=== PATIENT | female | born 1930 | race Caucasian/White ===

== ENCOUNTER 2018-02-22 10:38 | Day surgery (SDC) | payer MEDICARE ==
[~2018-02-22] VITALS: Ht 157.5 cm; Wt 91.2 kg
[~2018-02-22 10:38] MED LIST: ARTHRITIS PAIN650 MG PO; BENADRYL25 M1 PO; CIALIS20 MG PO; DILTIAZEM240 MG PO; FLUARIX QUADRIV1 IN2 IM; FLUARIX QUADRIV1 INJ IM; GLIPIZIDE10 M1 PO; GLUCOTROL10 MG PO; HUMULIN 70/30 SC; LASIX 40 MG TAB40 MG PO; LEVOTHROID200 MCG PO; LEVOTHYROXIN175 MC1 PO; LEVOTHYROXIN200 MC2 PO; LEVOTHYROXIN25 MC1 PO; LOPID600 MG PO; LOTRISONE EX; METOPROLOL TART50 MG PO; NEBULIZE4; NOVOLIN 70/30 RELION SC; NOVOLIN 70/30 SC; ONE TOUCH ULTRA 50 XX; OXY1; PERCOCET 5/325M1 TAB PO; PERCOCET1 TA2 PO; PLAVIX75 MG PO; SM ASPIRIN ENT325 MG PO; TRAMADOL HCL50 MG PO; TRAMADOL HYDROC50 MG PO; TYLENOL 8 HOUR650 MG PO; VALSARTAN40 MG PO; VASOTEC5 MG PO
[2018-02-22 12:59] VITALS: BP 146/65
== END 2018-02-22 13:18 | disposition home or self-care (01) ==
LOC: ORM 10:38
PROVIDERS: ATTEND Surgery
PROC: 0JBN0ZZ Excision of Right Lower Leg Subcutaneous Tissue and Fascia, Open Approach (ICD-10-PCS; principal; 2018-02-22)
DX: L28.0 Lichen simplex chronicus (principal); I48.91 Unspecified atrial fibrillation; I25.2 Old myocardial infarction; Z95.0 Presence of cardiac pacemaker

== ENCOUNTER 2018-08-14 18:04 | Observation (INO) | payer MEDICARE ==
[~2018-08-14] VITALS: Ht 157.5 cm; Wt 90.0 kg
--- NOTE | 2018-08-14 18:04 | NUR ---
PT TO ROOM 14 VIA EMS. PT FELL IN BR ON TUESDAY NONSYNCOPAL. PRESENTS W/101.5 TEMP AND PAIN TO LLE, L HIP, LT CHEST
--- NOTE | 2018-08-14 18:04 | NUR ---
PT TO ROOM 13 VIA EMS PT FELL AT HOME ON 08/12/18 C/O PAIN TO LLE L HIP L RIBS. TEMP 101.5
--- NOTE | 2018-08-14 19:00 | NUR ---
IV STARTED. RESTING QUIETLY. DISCUSSED POTENTIAL ADMISSION.
[2018-08-14 19:16] LABS: HEMATOCRIT 36.1 % (37.0-47.0); HEMOGLOBIN 11.6 g/dl (12.0-16.0); IMMATURE GRANULOCYTES 5.9 % (0.0-5.0); MEAN CELL VOLUME 90.3 fL CALC (80.0-100.0); MEAN CORPUSCULAR HGB CONC 32.1 g/L CALC (32.0-36.0); NEUT# 6.19 thou/uL (2.00-7.15); RED CELL DISTRI WIDTH 14.3 % (11.5-15.5)
[2018-08-14 19:24] LABS: ALBUMIN 3.5 g/dL (3.2-5.0); CREATININE 1.5 mg/dL (0.5-1.0); TOTAL PROTEIN 6.8 g/dL (6.3-8.2)
[2018-08-14 19:29] LABS: BILIRUBIN, TOTAL 0.5 mg/dL (0.0-1.4)
--- NOTE | 2018-08-14 20:00 | NUR ---
ADVISED OF ADMISSION PLANS. RESULTS PENDING. NO CHANGES NOTED.
[2018-08-14 20:08] LABS: URINE BILIRUBIN - DIPSTICK NEGATIVE (NEGATIVE); URINE BLOOD DIPSTICK LARGE (NEGATIVE); URINE COLOR YELLOW; URINE GLUCOSE - DIPSTICK NEGATIVE (NEGATIVE); URINE KETONE NEGATIVE (NEGATIVE); URINE NITRITE - DIPSTICK NEGATIVE (Negative); URINE PROTEIN - DIPSTICK 30 mg/dL (NEG-TRACE); URINE SPECIFIC GRAVITY 1.015; URINE UROBILINOGEN - DIPSTICK 0.2 E.U./dL (0.2)
[2018-08-14 20:10] LABS: URINE LEUK ESTERASE SMALL (NEGATIVE)
[2018-08-14 20:19] LABS: URINE BACTERIA MODERATE hpf; URINE SQUAMOUS EPITHELIAL CELL FEW EPI/hpf (0-FEW)
--- NOTE | 2018-08-14 22:44 | NUR ---
Admission Note Report Given to: ROBERT ASHER Transported by: Wheelchair X Stretcher Transported with: X Nurse Transporter X Patent IV X O2 X Service Engineer
[2018-08-14 23:15] VITALS: BP 146/63
--- NOTE | 2018-08-15 04:45 | NUR ---
PATIENT RESTING IN BED AT THIS TIME-APPEARS SLEEPING AT THIS TIME. IVF NS PATENT AND OINFUSING VIA LEFT FOREARM IV SITE ORDERED. TELE MONITOR IN PLACE. RESTING AT BEDSIDE. CALL LIGHT IN REACH. WILL CONT TO MONITOR.
[2018-08-15 06:22] LABS: ALBUMIN 3.1 g/dL (3.2-5.0); BILIRUBIN, TOTAL 0.5 mg/dL (0.0-1.4); CHOLESTEROL HDL RATIO 8.6 (<4.4 (CALC)); CREATININE 1.4 mg/dL (0.5-1.0); POTASSIUM 3.7 mmol/l (3.5-5.1); TOTAL PROTEIN 6.3 g/dL (6.3-8.2)
[2018-08-15 06:25] LABS: HEMATOCRIT 35.3 % (37.0-47.0); HEMOGLOBIN 11.1 g/dl (12.0-16.0); IMMATURE GRANULOCYTES 4.6 % (0.0-5.0); MEAN CELL VOLUME 92.2 fL CALC (80.0-100.0); MEAN CORPUSCULAR HGB CONC 31.4 g/L CALC (32.0-36.0); NEUT# 5.92 thou/uL (2.00-7.15); RED BLOOD COUNT 3.83 mill/uL (4.20-5.60); RED CELL DISTRI WIDTH 14.6 % (11.5-15.5)
[2018-08-15 07:09] VITALS: BP 154/71
[2018-08-15 07:09] LABS: TSH, 3RD GENERATION 1.64 uIU/mL (0.47 - 4.68)
--- NOTE | 2018-08-15 07:24 | NUR ---
PT LAYING IN BED AWAKE; A/O X3; RESP EVEN AND UNLABORED ON 02@2L; ASSESSMENT COMPLETED; TELE IN PLACE; #20G LFA NS @125CC/HR; VITALS STABLE; DRESSING TO LT LEG CDI; PT ASSISTED TO RECLINER; REQ 02 BE OFF FOR NOW; LAST BM 08/13; PT STATES WILL HAVE A SHOWER AFTER BREAKFAST; TOLD HER TO PUSH RED BUTTON YOUTUBER TURNER; SAFETY PRECUATION REINFORCE; AT BEDSIDE; ORDER BREAKFAST TRY FOR HIM;
--- NOTE | 2018-08-15 09:17 | NUR ---
FINANCIAL ADVISOR ASSISTING PT WITH A SHOWER; IV STOPPED AT THIS TIME. PT AMBULATE WITH STEADY GAIT TO RESTROOM; AM MEDS ADMINISTERED.
--- NOTE | 2018-08-15 09:53 | NUR ---
MEDICATED WITH ULTRAM FOR PAIN AROUND THE EYES AND HEAD 08/21; PT TOLERATED SHOWER WELL; PT REQ DRESSING TO RT LEG REMAIN OFF FOR NOW; LOTION APPLIED TO LEGS, ELEVATED WITH PILLOWS WHILE UP IN RECLINER; IVF RESTARTED AT PRESCRIBED RATE; CALL TURNER IN REACH;
[2018-08-15 11:07] VITALS: BP 114/50
--- NOTE | 2018-08-15 11:38 | NUR ---
PT SITTING UP IN RECLINER EATING LUNCH; RESP EVEN AND UNLABORED ON ROOM AIR. IV PATENT, NS @125CC/HR; VOICE NO CONCERNS; CALL TURNER IN REACH;
[2018-08-15 15:00] VITALS: BP 121/45
--- NOTE | 2018-08-15 18:01 | NUR ---
PT SITTING ON EDGE OF BED EATING SUPPER; MEDICATED PER EMAR; IVF NS 60CC/HR; RESP EVEN AND UNLABORED ON ROOM AIR; SPOUSE AT BEDSIDE; CALL TURNER IN REACH.
[2018-08-15 19:00] VITALS: BP 134/58
--- NOTE | 2018-08-15 19:30 | NUR ---
PATIENT RESTING IN BED-AWAKE ALERT AND ORIENTEDX3.TELE MONITOR IN PLACE. IV SITE TO LEFT FOREARM INTACT AND HEALTHY WITH IVF NS PATENT AND INFUSING AT 60CC/HR. PATIENT DENIES ANY PAIN UPON URINATION TODAY. STATES HAD SMALL BM EARLIER TODAY. PATIENT ASSISTED TO BR TO VOID AND THEN BACK TO BED. ASBRASION TO RLE SCABBED AND LEFT ANTONI. NO PERIPERAL EDEMA NOTED. PULSES ARE PALPABLE. SAFETY PRECAUTIONS REINFORCED. CALL LIGHT IN REACH. WILL CONT TO MONITOR.
[2018-08-16] VITALS: BP 147/61
--- NOTE | 2018-08-16 00:30 | NUR ---
PATIENT RESTING IN BED WITH O2 VIA NASAL CANNULA ON PLACE AT 2LPM. PATIENT NOTED TO HAVE NON-PRODUCTIVE COUGH. PATIENT MEDICATED WITH TYLENOL FOR TEMP-99.8. SAFETY PRECAUTIONS REINFORCED. CALL LIGHT IN REACH. WILL CONT TO MONITOR.
--- NOTE | 2018-08-16 02:00 | NUR ---
PATIENT RESTING IN BED APPEARS SLEEPING WITH O2 VIA NASAL CANNULA IN PLACE AND EYES CLOSED. TEMPS IS DOWN TO 98.7 AT THIS TIME. IVF PATENT AND INFUSING LEFT FOREARM SITE. CALL LIGHT IN REACH. WILL CONT TO [id number].
--- NOTE | 2018-08-16 02:18 | NUR ---
PATIENT C/O ABD PAIN-7/10 ON PAIN SCALE. MEDICATED WITH DILAUDID 1MG IVP FOR ABD PAIN. IVF PATENT AND INFUSING AT 150CC/HR VIA RIGHT AC SITE. SAFETY PRECAUTIONS REINFORCED. CALL LIGHT IN REACH. WILL CONT TO MONITOR.
[2018-08-16 04:04] VITALS: BP 158/65
--- NOTE | 2018-08-16 07:00 | NUR ---
REPORT RECEIVED FROM ROBERT ASHER;PT RESTING AT BEDSIDE WITH SPOUSE;INTRODUCED SELF TO PT AND POC DISCUSSED;RESPIRATIONS EVEN AND UNLABORED ON RA;PT DENIES ANY CURRENT PAIN OR DISCOMFORTS;TELE MONITORING IN PLACE;PT DENIES ANY ADDITIONAL NEEDS AND IS ENCOURAGED TO CALL FOR ASSISTANCE IF NEEDED;FALL PRECAUTIONS IN PLACE WITH BED IN THE LOWEST POSITION AND CALL LIGHT IN REACH;WILL CONTINUE TO MONITOR
--- NOTE | 2018-08-16 07:56 | NUR ---
PRELIMINARY BLOOD CULTURES RESULTS CALLED TO . THE PATIENT HAS URINE CULTURE SHOWING E.COLI AND PRELIMINARY BLOOD CULTURE SHOWING E.COLI. NEW ORDER TO CHANGE ROCEPHIN TO 2 GRAMS DAILY PER .
--- NOTE | 2018-08-16 08:00 | NUR ---
PT RESTING AT BEDSIDE FINISHING BREAKFAST WITH SPOUSE AT SIDE, A&O X3;VS OBTAINED AND ASSESSMENT COMPLETED;CURRENT BP 174/76 HR 60, ALL MORNING MEDICATIONS TO BE ADMINISTERED;RESPIRATIONS EVEN AND UNLABORED ON O2 @ 2L VIA NC, NON-PRODUCTIVE MOIST COUGH NOTED;ABDOMEN SOFT ON PALPATION AND ACTIVE IN ALL 4 QUADRANTS;WEAK PEDAL PULSES;SCABBED AREA NOTED TO RLL,ANTONI;#20G TO LEFT FOREARM INFUSING NS @ 125ML/HR,SITE APPEARS HEALTHY;TELE MONITORING IN PLACE;ACCUCHECK 141;PT DENIES ANY ADDITIONAL NEEDS AND IS ENCOURAGED TO CALL FOR ASSISTANCE IF NEEDED;FALL PRECAUTIONS IN PLACE WITH CALL LIGHT IN REACH;WILL CONTINUE TO MONITOR
--- NOTE | 2018-08-16 08:01 | NUR ---
AT BEDSIDE DISCUSSING POC WITH PT AND SPOUSE.
[2018-08-16 08:04] VITALS: BP 174/76
[2018-08-16] MEDS ORDERED: ROCEPHIN 2 GM2 GM IM ×2 (08:09→10:39)
[2018-08-16 09:25] VITALS: BP 151/70
--- NOTE | 2018-08-16 09:25 | NUR ---
BP RE-CHECK 151/70
--- NOTE | 2018-08-16 11:30 | NUR ---
PT RESTING AT BEDSIDE WITH SPOUSE;RESPIRATIONS EVEN AND UNLABORED ON O2 @ 2L VIA NC;PT DENIES ANY CURRENT PAIN OR DISCOMFORTS;TELE MONITORING IN PLACE;IV SITE TO [facility] PATENT;ACCUCHECK 219;PT DENIES ANY ADDITIONAL NEEDS AND IS ENCOURAGED TO CALL FOR ASSISTANCE IF NEEDED;CALL LIGHT IN REACH;WILL CONTINUE TO MONITOR
--- NOTE | 2018-08-16 15:00 | NUR ---
AWAITING CIRA POST WITH HOME MEDICATION FOR DISCHARGE;IV SITE REMAINS PATENT;TELE MONITORING IN PLACE;FRESH WATER PROVIDED TO PT AND SPOUSE;PT DENIES ANY ADDITIONAL NEEDS AND IS ENCOURAGED TO CALL FOR ASSISTANCE IF NEEDED;FALL PRECAUTIONS IN PLACE WITH CALL LIGHT IN REACH;WILL CONTINUE TO MONITOR
--- NOTE | 2018-08-16 16:01 | NUR ---
ALL DISCHARGE INSTRUCTIONS PROVIDED AT THIS TIME;PT TO GO TO 'S OFFICE DIRECTLY AFTER D/C FOR ORAL ABX RX INSTEAD OF IM INJECTION DAILY, PER ;PT DENIES ANY ADDITIONAL NEEDS OR QUESTIONS;WHEELCHAIR TO BE PROVIDED FOR D/C HOME.
--- NOTE | 2018-08-16 16:02 | NUR ---
Discharge instructions given. Patient verbalizes understanding of same. Discharged in stable condition via Wheelchair to Home with spouse. All belongings sent with pt. Pt d/c via wheelchair in stable condition accompanied by peg herrera and kayla.
== END 2018-08-16 16:00 | disposition home or self-care (01) ==
LOC: ED 18:04 → ED-I 21:40 → ED 22:12 → MS2 22:13
PROVIDERS: Emergency Medicine; ADMIT Internal Medicine Geriatric Medicine; ATTEND Internal Medicine Geriatric Medicine
DX: N39.0 Urinary tract infection, site not specified (principal); E86.0 Dehydration; I10 Essential (primary) hypertension; I48.91 Unspecified atrial fibrillation; J44.9 Chronic obstructive pulmonary disease, unspecified; I25.10 Atherosclerotic heart disease of native coronary artery without angina pectoris; E11.51 Type 2 diabetes mellitus with diabetic peripheral angiopathy without gangrene; E11.649 Type 2 diabetes mellitus with hypoglycemia without coma; K21.9 Gastro-esophageal reflux disease without esophagitis; K27.9 Peptic ulcer, site unspecified, unspecified as acute or chronic, without hemorrhage or perforation; M79.7 Fibromyalgia; E03.9 Hypothyroidism, unspecified; S09.90XA Unspecified injury of head, initial encounter; M25.552 Pain in left hip; W19.XXXA Unspecified fall, initial encounter; B96.20 Unspecified Escherichia coli [E. coli] as the cause of diseases classified elsewhere; Z95.0 Presence of cardiac pacemaker; Z79.4 Long term (current) use of insulin
CPT/HCPCS: J0131

== ENCOUNTER 2018-08-23 15:55 | Observation (INO) | payer MEDICARE ==
[~2018-08-23] VITALS: Ht 157.5 cm; Wt 89.0 kg
[~2018-08-23 15:55] MED LIST changes: +ROCEPHIN 2 GM2 GM IM
[2018-08-23 16:20] VITALS: BP 195/58
[2018-08-23 17:24] LABS: HEMATOCRIT 37.6 % (37.0-47.0); HEMOGLOBIN 11.5 g/dl (12.0-16.0); IMMATURE GRANULOCYTES 5.4 % (0.0-5.0); MEAN CELL VOLUME 93.8 fL CALC (80.0-100.0); MEAN CORPUSCULAR HGB 28.7 pG CALC (26.0-32.0); MEAN CORPUSCULAR HGB CONC 30.6 g/L CALC (32.0-36.0); NEUT# 3.95 thou/uL (2.00-7.15); RED BLOOD COUNT 4.01 mill/uL (4.20-5.60); RED CELL DISTRI WIDTH 14.5 % (11.5-15.5)
[2018-08-23 17:49] LABS: CREATININE 1.1 mg/dL (0.5-1.0)
[2018-08-23 17:55] LABS: POTASSIUM 4.5 mmol/l (3.5-5.1)
[2018-08-23 18:13] LABS: URINE BILIRUBIN - DIPSTICK NEGATIVE (NEGATIVE); URINE BLOOD DIPSTICK NEGATIVE (NEGATIVE); URINE COLOR YELLOW; URINE GLUCOSE - DIPSTICK NEGATIVE (NEGATIVE); URINE KETONE NEGATIVE (NEGATIVE); URINE LEUK ESTERASE NEGATIVE (Negative); URINE NITRITE - DIPSTICK NEGATIVE (Negative); URINE PROTEIN - DIPSTICK NEGATIVE (NEG-TRACE); URINE UROBILINOGEN - DIPSTICK 0.2 E.U./dL (0.2)
[2018-08-23 18:14] LABS: URINE CLARITY CLEAR
[2018-08-23 19:20] VITALS: BP 156/71
[2018-08-24 04:00] VITALS: BP 152/67
[2018-08-24 06:16] LABS: HEMATOCRIT 33.6 % (37.0-47.0); HEMOGLOBIN 10.5 g/dl (12.0-16.0); MEAN CELL VOLUME 93.9 fL CALC (80.0-100.0); MEAN CORPUSCULAR HGB 29.3 pG CALC (26.0-32.0); MEAN CORPUSCULAR HGB CONC 31.3 g/L CALC (32.0-36.0); NEUT# 4.33 thou/uL (2.00-7.15); RED BLOOD COUNT 3.58 mill/uL (4.20-5.60); RED CELL DISTRI WIDTH 14.5 % (11.5-15.5)
[2018-08-24 06:28] LABS: ALKALINE PHOSPHATASE 59 u/l (38-126); ANION GAP 10 (6-22 (CALC)); BILIRUBIN, TOTAL 0.3 mg/dL (0.0-1.4); BUN 19 mg/dL (8-23); BUN/CREATININE RATIO 19 (12-20 (CALC)); CARBON DIOXIDE 35 mmol/l (22-30); CHLORIDE 102 mmol/l (95-108); GFR 53 ML/MIN (>=60 (CALC)); GFR FOR AFR.AMER. > 60 ML/MIN (>=60 (CALC)); POTASSIUM 4.1 mmol/l (3.5-5.1); SGOT/AST 18 u/l (9-36); SODIUM 144 mmol/l (137-146); TOTAL PROTEIN 6.1 g/dL (6.3-8.2)
[2018-08-24 06:45] LABS: IMMATURE GRANULOCYTES 6.8 % (0.0-5.0)
[2018-08-24 08:25] VITALS: BP 158/75
== END 2018-08-24 14:34 | disposition home or self-care (01) ==
LOC: MS2 15:55
PROVIDERS: ADMIT Internal Medicine Geriatric Medicine; ATTEND Internal Medicine Geriatric Medicine
DX: E11.649 Type 2 diabetes mellitus with hypoglycemia without coma (principal); E86.0 Dehydration; N39.0 Urinary tract infection, site not specified; K27.4 Chronic or unspecified peptic ulcer, site unspecified, with hemorrhage; I95.9 Hypotension, unspecified; I11.0 Hypertensive heart disease with heart failure; I50.9 Heart failure, unspecified; I25.10 Atherosclerotic heart disease of native coronary artery without angina pectoris; I73.9 Peripheral vascular disease, unspecified; K21.9 Gastro-esophageal reflux disease without esophagitis; E03.9 Hypothyroidism, unspecified; M79.7 Fibromyalgia; Z79.4 Long term (current) use of insulin
CPT/HCPCS: S0164

== ENCOUNTER 2018-10-13 16:42 | Inpatient (IN) | payer MEDICARE ==
[~2018-10-13] VITALS: Ht 157.5 cm; Wt 91.6 kg
--- NOTE | 2018-10-13 16:42 | NUR ---
PT TO ROOM 8 VIA EMS
--- NOTE | 2018-10-13 17:45 | NUR ---
PATIENT ALERT AND ORIENTED TO SELF ONLY. STATES BEING SOB AND TIRED FOR PAST WEEK.
[2018-10-13 17:51] LABS: HEMOGLOBIN 11.6 g/dl (12.0-16.0); MEAN CORPUSCULAR HGB 28.5 pG CALC (26.0-32.0); NEUT# 3.94 thou/uL (2.00-7.15); RED BLOOD COUNT 4.07 mill/uL (4.20-5.60); RED CELL DISTRI WIDTH 15.2 % (11.5-15.5)
--- NOTE | 2018-10-13 17:51 | NUR ---
PATIENT PLACED ON BI-PAP. LIPS NOTED TO BY CYANOTIC PRIOR TO BI-PAP PLACEMENT.
[2018-10-13 17:59] LABS: HEMATOCRIT 41.4 % (37.0-47.0); MEAN CELL VOLUME 101.7 fL CALC (80.0-100.0)
[2018-10-13 18:06] LABS: ALKALINE PHOSPHATASE 59 u/l (38-126); BUN 35 mg/dL (8-23); BUN/CREATININE RATIO 34 (12-20 (CALC)); CARBON DIOXIDE 38 mmol/l (22-30); CHLORIDE 103 mmol/l (95-108); GFR 53 ML/MIN (>=60 (CALC)); GFR FOR AFR.AMER. > 60 ML/MIN (>=60 (CALC)); SODIUM 144 mmol/l (137-146)
[2018-10-13 18:07] LABS: ALBUMIN 3.7 g/dL (3.2-5.0); ANION GAP 9 (6-22 (CALC)); BILIRUBIN, TOTAL 0.6 mg/dL (0.0-1.4); POTASSIUM 5.5 mmol/l (3.5-5.1); SGOT/AST 35 u/l (9-36); TOTAL PROTEIN 7.7 g/dL (6.3-8.2)
[2018-10-13 18:18] LABS: MYOGLOBIN 103 ng/mL (0 - 62)
--- NOTE | 2018-10-13 18:26 | NUR ---
AT BEDSIDE TO DISCUSS RESULTS AND PLAN TO ADMIT, VERBAL UNDERSTANDING. FROM . PATIENT CONTINUES TO BE ON BIPAP. MEDICATED PER MD ORDER.
--- NOTE | 2018-10-13 18:28 | NUR ---
PATIENT AND UNABLE TO VERIFY HOME MEDICATIONS.
--- NOTE | 2018-10-13 18:45 | NUR ---
BEDSIDE REPORT GIVEN TO ROBERT BURKETT. CARE RELINQUISHED.
--- NOTE | 2018-10-13 19:09 | NUR ---
REPORT CALLED TO ROBERT DOWNS. WAITING ON SECOND ICU NURSE.
[2018-10-13 19:28] LABS: URINE BILIRUBIN - DIPSTICK NEGATIVE (NEGATIVE); URINE BLOOD DIPSTICK NEGATIVE (NEGATIVE); URINE COLOR YELLOW; URINE GLUCOSE - DIPSTICK NEGATIVE (NEGATIVE); URINE KETONE NEGATIVE (NEGATIVE); URINE LEUK ESTERASE NEGATIVE (NEGATIVE); URINE PROTEIN - DIPSTICK NEGATIVE (NEG-TRACE); URINE SPECIFIC GRAVITY 1.025; URINE UROBILINOGEN - DIPSTICK 0.2 E.U./dL (0.2)
[2018-10-13 19:29] LABS: URINE NITRITE - DIPSTICK POSITIVE (Negative)
[2018-10-13 19:37] LABS: URINE BACTERIA FEW hpf; URINE RBC 0-2 RBC/hpf (0-5); URINE SQUAMOUS EPITHELIAL CELL FEW EPI/hpf (0-FEW); URINE WBC 0-2 WBC/hpf (0-5)
--- NOTE | 2018-10-13 20:45 | NUR ---
Admission Note Report Given to: sbar printed to floor Transported by: Wheelchair X Stretcher Transported with: X Nurse Transporter X Patent IV O2 X Director Of Patient Care
--- NOTE | 2018-10-13 20:45 | NUR ---
PATIENT ARRIVED VIA STRECHER AT 2044. MADELAINE JONES PRESENT AND KULWINDER RT. PATIENT ALERT TO SELF. BIPAP IN PLACE, RESP EVEN AND UNLABORED. NO S/S OF DISTRESS NOTED. PRESENT AT THE BEDSIDE. ORIENTED TO ROOM, CALL LIGHT, AND BED. FALL PRECATUIONS IN PLACE. PATIENT/ SPOUSE INFORMED TO CALL WITH ANY QUESTIONS OR CONCERNS. PLAN OF CARE DISCUSSED. ASSESSMENT COMPLETED AT THIS TIME.
--- NOTE | 2018-10-13 20:45 | NUR ---
TO FLOOR VIA STRETCHER WITH BIPAP/NURSE/RT. ANTIBIOTIC INFUSING. IN TOW. PT STATES FEELS BETTER.
[2018-10-13 21:00] VITALS: BP 146/51
[2018-10-13 21:15] VITALS: BP 140/45
[2018-10-13 21:30] VITALS: BP 122/55
[2018-10-13 21:45] VITALS: BP 127/57
--- NOTE | 2018-10-13 22:00 | NUR ---
PATIENT AWAKE WITH PRESENT AT THE BEDSIDE. RESP EVEN AND UNLABORED. RESP EVEN AND UNALBORED. NO S/S OF DISTRESS NOTED.
[2018-10-13 23:00] VITALS: BP 156/51
[2018-10-14] VITALS (15 sets, daily range): BP systolic 113–189; BP diastolic 35–110
--- NOTE | 2018-10-14 | NUR ---
PATIENT AWAKE WITH PRESENT AT THE BEDSIDE. PATIENT REMOVING BP CUFF AND PULSE OX. RESP EVEN AND UNLABORED. NO S/S OF DISTRESS NOTED.
--- NOTE | 2018-10-14 01:15 | NUR ---
GIVEN DIRECT ICU PHONE NUMBER AND PATIENT'S CODE. PATIENT'S LEFT FOR THE NIGHT.
--- NOTE | 2018-10-14 01:30 | NUR ---
PATIENT CONTINUES TO REMOVE BP CUFF AND PULSE OX AFTER REMINDING HER THAT SHE NEEDS TO WEAR THE MONTIORING OF HER VITALS. PATIENT IS CONFUSED AND ALERT TO SELF ONLY.
--- NOTE | 2018-10-14 02:04 | NUR ---
PATIENT AWAKE WITH AT THE BEDSIDE. RESP EVEN AND UNLABORED. NO S/S OF DISTRES NOTED.
--- NOTE | 2018-10-14 02:30 | NUR ---
PATIENT TURNED AND MASK ADJUSTED. PATIENT SEEMS TO BE MORE COMFORTBLE. RESP EVEN AND UNLABORED. NO S/S OF DISTRESS NOTED.
--- NOTE | 2018-10-14 04:16 | NUR ---
PATIENT RESTING WITH EYES CLOSED. RESP EVEN AND UNLABORED. NO S/S OF DISTRESS NOTED.
[2018-10-14 05:45] LABS: HEMATOCRIT 41.2 % (37.0-47.0); HEMOGLOBIN 11.8 g/dl (12.0-16.0); MEAN CORPUSCULAR HGB 28.9 pG CALC (26.0-32.0); MEAN CORPUSCULAR HGB CONC 28.6 g/L CALC (32.0-36.0); NEUT# 3.43 thou/uL (2.00-7.15); RED BLOOD COUNT 4.08 mill/uL (4.20-5.60); RED CELL DISTRI WIDTH 15.4 % (11.5-15.5)
--- NOTE | 2018-10-14 05:52 | NUR ---
PATIENT AWAKE AND ASKING TO HAVE THE BIPAP MASK REMOVED. PARTIAL BED BATH GIVEN. PATIENT ABLE TO STATE NAME, , THAT SHE IS AT THE HOSPITAL AND THE YEAR. LABWORK OBTAINED DURING THIS TIME BY LAB. RT AT THE BEDSIDE GIVING A BREATHING TREATMENT CURRENTLY.
[2018-10-14 06:07] LABS: ALBUMIN 3.6 g/dL (3.2-5.0); ALKALINE PHOSPHATASE 56 u/l (38-126); BILIRUBIN, TOTAL 0.7 mg/dL (0.0-1.4); BUN 40 mg/dL (8-23); BUN/CREATININE RATIO 42 (12-20 (CALC)); CHLORIDE 105 mmol/l (95-108); GFR 53 ML/MIN (>=60 (CALC)); GFR FOR AFR.AMER. > 60 ML/MIN (>=60 (CALC)); SGOT/AST 27 u/l (9-36); SODIUM 143 mmol/l (137-146); TOTAL PROTEIN 7.2 g/dL (6.3-8.2)
[2018-10-14 06:15] LABS: IMMATURE GRANULOCYTES 6.8 % (0.0-5.0)
[2018-10-14 06:23] LABS: ANION GAP 14 (6-22 (CALC)); CARBON DIOXIDE 30 mmol/l (22-30); POTASSIUM 5.8 mmol/l (3.5-5.1)
--- NOTE | 2018-10-14 06:26 | NUR ---
NEW ORDERS GIVEN BY TO CHANGE CHEST XRAY ORDER
--- NOTE | 2018-10-14 06:29 | NUR ---
X-RAY TECH AT THE BEDSIDE.
--- NOTE | 2018-10-14 07:00 | NUR ---
PT RESTING IN BED AWAKE. PT ON BIPAP. SPOUSE IN ROOM. PT IS ALERT AND OIENTED X3. SHIFT ASSESSMENT COMPLETED AT THIS TIME. RT AT BEDSIDE. PT OFF BIPAP AND PLACED ON O2 2L NC HUMIDIFIED. RT COMPLETED AM EKG. IV PATNET X1. CALL LIGHT IN REACH. WILL CONTINUE TO MONITOR.
--- NOTE | 2018-10-14 07:42 | NUR ---
PT SET UP FOR AM MEAL
--- NOTE | 2018-10-14 08:20 | NUR ---
DR OLIVEIRA AT BEDSIDE AT THIS TIME TO DISCUSS PLAN OF CARE.
--- NOTE | 2018-10-14 10:00 | NUR ---
PT AND CONVERSING IN ROOM. HELPING PATIENT TAKE OFF BP CUFF. THIS VICE PRESIDENT OF OPERATIONS INTO ROOM. PT COMPLAINING BP CUFF TO TIGHT. AUTO BP READS 189/70. MANUAL BP 150/80.
--- NOTE | 2018-10-14 10:45 | NUR ---
ASSISTED PT TO BSC TO VOID. PT ASSISTED BACK TO BED POST VOID. PT TOLERATED TRANSFER WELL. SPOUSE REMIANS IN ROOM. CALL LIGHT IN REACH. WILL CONTINUE TO MONTIOR.
--- NOTE | 2018-10-14 11:15 | NUR ---
PT WITH COMPLAINTS OF INCREASED SHORTNESS OF BREATH , COUGH AND CHEST PAIN. CALLED RT FOR EKG. INCREASED O2 TO 4L NC. ELEVEATED HOB. PT COUGHED SMALL AMOUNT OF CLEAR SECRETIONS. THEN PATIENT REPORTS FEELING BETTER. DR OLIVEIRA NOTIFED.
--- NOTE | 2018-10-14 11:33 | NUR ---
PT SET UP FOR NOON MEAL.
--- NOTE | 2018-10-14 12:15 | NUR ---
ASSISTED PT TO BSC TO VOID THEN BACK TO BED. PT TOLERATED TRANFER WELL
--- NOTE | 2018-10-14 14:00 | NUR ---
PT ASSISTED TO BSC AND BACK TO BED. PT IS WEAK. PT IS ANXIOUS. NOTIFIED DR OLIVEIRA. NEW ORDERS RECEIVED.
--- NOTE | 2018-10-14 14:31 | NUR ---
PT HAS JANIE NASH AT BEDSIDE. COUNSELED PATIENT AND SPOUSE THAT PATIENT IS ON DIABETIC DIET. BOTH VERBALIZED UNDERSTANDING
--- NOTE | 2018-10-14 15:47 | NUR ---
PT RESTING IN BED WITH EYES CLOSED. RESP ARE EVEN AND UNLABORED. NO DISTRESS NOTED. CALL LIGHT IN REACH. WILL CONTINUE TO MONITOR.
--- NOTE | 2018-10-14 17:43 | NUR ---
PT RESTING IN BED WITH EYES CLOSED. RESP ARE EVEN AND UNLABORED. NO DISTRESS NOTED. CALL LIGHT IN REACH. WILL CONTINUE TO MONITOR.
--- NOTE | 2018-10-14 17:45 | NUR ---
ACCUCHECK NOT DONE DUE TO PATIENT RESTING DINNER TRAY HELD AT THIS TIME WELL DUE TO PATIENT RESTING. PT HAD ATTEMPTED MULTIPLE TIMES TO REST THROUGHOUT DAY AND WAS UNABLE DUE TO VISITORS. WILL CONTINUE TO MONITOR.
--- NOTE | 2018-10-14 18:33 | NUR ---
SOUSE, SON, AND GRANDSON ON TO UNIT TO VISIT. EXPLAINED TO FAMILY THAT THEY COULD VISIT PATIENT HOWEVER PATIENT IS RESTING AND HAD ONLY SLEPT TWO HOURS PREVIOUS NIGHT AND NOT SLEPT MUCH THROUGHOUT DAY. FAMILY DECIDED NOT TO VISIT.
--- NOTE | 2018-10-14 19:00 | NUR ---
patient is resting with eyes closed. arouses to painful stimuli. on 3l/min nc. no acute respiratory distress noted, mouth breaths. lays 45 degrees with ble elevated. partial nursing assessment performed due to patient is resting at this moment, received in report patient has not been able to rest/sleep. see assessment intervention. rac iv intact and flsuhes properly. saline locked. scd's to ble intact. no edema noted. afebrile. paced on telemetry. call light within reach. will continue to monitor.
--- NOTE | 2018-10-14 20:25 | NUR ---
patient is resting with eyes closed. arouses with painful stimuli on 3l/min h. nc, nonlabored, mouth-breathing, sats 97 %. ble remain elevated with pillows. will continue to let rest. call light within reach. paced on telemetry.
--- NOTE | 2018-10-14 21:40 | NUR ---
patient awoke after breathing treatment. patient assisted to bsc assist x2. mild sob noted. desats to 80's with exertion. pursed lip breathing technique encouraged. patient alert and oriented x4. pleasant, answers all questions, follows commands. now lays 45 degrees. no other needs at the moment, drank water. no complaints. call light within reach. will continue to monitor.
[2018-10-15] VITALS (12 sets, daily range): BP systolic 149–187; BP diastolic 55–81
--- NOTE | 2018-10-15 | NUR ---
PATIENT RESTS WITH EYES CLOSED. ON 3 L/MIN NC. NO ACUTE DISTRESS SHOWN. NO NEEDS AT THIS TIME. PACED ON TELEMETRY. NO NEEDS AT THIS TIME. CALL LIGHT WITHIN REACH.
--- NOTE | 2018-10-15 02:20 | NUR ---
PATIENT RESTS WITH EYES CLOSED. NO ACUTE DISTRESS NOTED. BLE ELEVATED. NO NEEDS AT THIS TIME. CALL LIGHT WITHIN REACH.
--- NOTE | 2018-10-15 04:04 | NUR ---
PATIENT LAYING 45 DEGREES, RESTING WITH EYES CLOSED. NO ACUTE DISTRESS NOTED. ON 4L/MIN NC H. NOW DUE TO DESATING EARLIER INTO 80'S %. NOW SATS 97%. CALL LIGHT WITHIN REACH.
[2018-10-15 05:44] LABS: HEMATOCRIT 39.7 % (37.0-47.0); HEMOGLOBIN 11.4 g/dl (12.0-16.0); MEAN CORPUSCULAR HGB 28.4 pG CALC (26.0-32.0); MEAN CORPUSCULAR HGB CONC 28.7 g/L CALC (32.0-36.0); NEUT# 3.04 thou/uL (2.00-7.15); RED BLOOD COUNT 4.01 mill/uL (4.20-5.60); RED CELL DISTRI WIDTH 15.3 % (11.5-15.5)
[2018-10-15 06:00] LABS: ALBUMIN 3.5 g/dL (3.2-5.0); ALKALINE PHOSPHATASE 51 u/l (38-126); BILIRUBIN, TOTAL 0.5 mg/dL (0.0-1.4); BUN 54 mg/dL (8-23); BUN/CREATININE RATIO 53 (12-20 (CALC)); CHLORIDE 100 mmol/l (95-108); GFR 53 ML/MIN (>=60 (CALC)); GFR FOR AFR.AMER. > 60 ML/MIN (>=60 (CALC)); SGOT/AST 22 u/l (9-36); SODIUM 144 mmol/l (137-146); TOTAL PROTEIN 7.2 g/dL (6.3-8.2)
[2018-10-15 06:09] LABS: ANION GAP 11 (6-22 (CALC)); CARBON DIOXIDE 39 mmol/l (22-30); POTASSIUM 5.8 mmol/l (3.5-5.1)
--- NOTE | 2018-10-15 06:13 | NUR ---
PATIENT WAS AWAKE, TECH IN ROOM EARLIER TO TAKE XRAY OF CHEST, PATIENT ABLE TO ASSIST WITH PULLING UP TO HOB. PATIENT BECOMES MILDLY SOB WITH EXERTION. PATIENT ASKS WHEN SHE WILL BE ABLE TO WALK TO BATHROOM, EDUCATED HER ON LEVEL OF ACTIVITY SHE IS ABLE TO TOLERATE WELL HER OXYGENATION LEVELS WITH EXERTION, SHE DOES DESAT WITH EXERTION INTO THE 80'S PERCENT. PATIENT WAS ALSO ASSISTED TO AND FROM [facility]. SHE REMAINS ON 4L/MIN O2, AND SATS 96% AT REST. NO COMPLAINTS OF PAIN. NO OTHER NEEDS AT THIS TIME. CALL LIGHT WITHIN REACH. WILL CONTINUE TO MONITOR.
[2018-10-15 06:53] LABS: IMMATURE GRANULOCYTES 7.6 % (0.0-5.0)
--- NOTE | 2018-10-15 07:00 | NUR ---
PT RESTING IN BED AWAKE. PT IS ALERT AND ORIENTED X3. SHIFT ASSESSMENT COMPLETED AT THIS TIME. IV PATENT X1. SPOUSE IN TO ROOM. CALL LIGHT IN REACH. WILL CONTINUE TO MONITOR.
--- NOTE | 2018-10-15 07:52 | NUR ---
PT ASSISTED UP TO CHAIR AT BEDSIDE FOR AM MEAL. PT TOLERATED TRANSFER WELL.
--- NOTE | 2018-10-15 08:27 | NUR ---
PHONED DR OLIVEIRA IN REFERENCE TO CT SCAN ORDERED WITH CONTRAST AND PATIENT HAS IODINE ALLERGY. AWAITING ORDERS
--- NOTE | 2018-10-15 09:05 | NUR ---
DR OLIVEIRA AT BEDSIDE AT THIS TIME
--- NOTE | 2018-10-15 09:40 | NUR ---
PT TO CT SCAN VIA WC ACCOMPNIED BY NURSE.
--- NOTE | 2018-10-15 09:55 | NUR ---
PT RETURNED FROM CT ASSISTED PT BACK TO BED. PT TOLERATED TRANSFER WELL.
--- NOTE | 2018-10-15 11:34 | NUR ---
pt assisted to bsc. then assisted to chair. pt tolerated transfer well.
--- NOTE | 2018-10-15 14:40 | NUR ---
MULTIPLE FAMILY MEMBERS AT BEDSIDE. PT IS RESTING IN BED. CALL LIGHT IN REACH. WILL CONTINUE TO MONITOR.
--- NOTE | 2018-10-15 16:00 | NUR ---
PT RESTING IN BED. SPOUSE IN ROOM. RESP ARE EVEN AND UNLABORED. NO DISTRESS NOTED. CALL LIGHT IN REACH. WILL CONTINUE TO MONITOR.
--- NOTE | 2018-10-15 17:40 | NUR ---
PT SET UP FOR PM MEAL. GUEST TRAY PROVIDED WELL FOR SPOUSE.
--- NOTE | 2018-10-15 17:53 | NUR ---
MULTIPLE VISITORS IN ROOM. PT SITTING UP EATING MEAL AND VISITING. NO DISTRESS NOTED. CALL LIGHT IN REACH. WILL CONTINUE TO MONITOR.
--- NOTE | 2018-10-15 19:10 | NUR ---
awake. no resp diff. o2 cont per nc. residential monitor shows paced rhythm. #20 rac saline lock. fluid restriction cont. up to bsc. voided without diff. abebe well. fall precautions cont. @ bedside.
--- NOTE | 2018-10-15 22:00 | NUR ---
eyes closed. no distres. mechatronics engineer shows paced rhythm.
[2018-10-16] VITALS (8 sets, daily range): BP systolic 150–189; BP diastolic 57–76
--- NOTE | 2018-10-16 00:01 | NUR ---
up to bsc. abebe well. denies resp distress.
--- NOTE | 2018-10-16 02:00 | NUR ---
eyes closed. no apparent distress. o2 cont.
--- NOTE | 2018-10-16 04:40 | NUR ---
lab here. blood drawn.
[2018-10-16 05:05] LABS: HEMOGLOBIN 10.7 g/dl (12.0-16.0); MEAN CORPUSCULAR HGB 28.5 pG CALC (26.0-32.0); MEAN CORPUSCULAR HGB CONC 29.7 g/L CALC (32.0-36.0); NEUT# 2.99 thou/uL (2.00-7.15); RED BLOOD COUNT 3.75 mill/uL (4.20-5.60); RED CELL DISTRI WIDTH 14.9 % (11.5-15.5)
[2018-10-16 05:16] LABS: IMMATURE GRANULOCYTES 9.6 % (0.0-5.0)
[2018-10-16 05:19] LABS: ALBUMIN 3.2 g/dL (3.2-5.0); ALKALINE PHOSPHATASE 50 u/l (38-126); BILIRUBIN, TOTAL 0.4 mg/dL (0.0-1.4); BUN 54 mg/dL (8-23); BUN/CREATININE RATIO 58 (12-20 (CALC)); CHLORIDE 97 mmol/l (95-108); CREATININE 0.9 mg/dL (0.5-1.0); GFR 59 ML/MIN (>=60 (CALC)); GFR FOR AFR.AMER. > 60 ML/MIN (>=60 (CALC)); POTASSIUM 4.7 mmol/l (3.5-5.1); SGOT/AST 19 u/l (9-36); SODIUM 142 mmol/l (137-146); TOTAL PROTEIN 6.6 g/dL (6.3-8.2)
[2018-10-16 05:27] LABS: ANION GAP 11 (6-22 (CALC)); CARBON DIOXIDE 39 mmol/l (22-30)
--- NOTE | 2018-10-16 05:30 | NUR ---
up to bsc to void then weighed per bed scale. abebe well.
--- NOTE | 2018-10-16 07:00 | NUR ---
PT RESTING IN BED AWAKE. SPOUSE IN ROOM. PT IS ALERT AND ORIENTED X3. SHIFT ASSESSMENT COMPLETED AT THIS TIME. IV PATENT X1. ASSISTED PT UP TO CHAIR. CALL LIGHT IN REACH. WILL CONTINUE TO MONITOR.
--- NOTE | 2018-10-16 07:30 | NUR ---
PT AND SPOUSE SET UP FOR MEAL.
--- NOTE | 2018-10-16 08:15 | NUR ---
DR OLIVEIRA AT BEDSIDE AT THIS TIME.
--- NOTE | 2018-10-16 09:04 | NUR ---
DISCUSSED WITH PATIENT ABOUT REHAB BECAUSE DAUGHTER AND PATIENT HAD A DISAGREEMENT ABOUT PATIENT GOING. PATIENT CONTINUES TO STATE SHE IS NOT GOING TO GO. AUDREY MANAGEMENT CONSULT IN.
--- NOTE | 2018-10-16 09:15 | NUR ---
ASSISTED PT TO BSC. THEN ASSISTED BACK TO CHAIR
--- NOTE | 2018-10-16 10:03 | NUR ---
PHARMACY AT BEDSIDE AT THIS TIME.
[2018-10-16] MEDS ORDERED: NORMODYNE/100 MG/TA1 PO (10:40)
[2018-10-16] MEDS ORDERED: PLAVIX75 MG PO (10:41)
[2018-10-16] MEDS ORDERED: LOPID600 MG PO (10:41)
[2018-10-16] MEDS ORDERED: SYNTHROID175 MCG PO (10:41)
[2018-10-16] MEDS ORDERED: GLUCOTROL5 MG PO (10:42)
[2018-10-16] MEDS ORDERED: LASIX 40 MG TAB40 MG PO (10:42)
[2018-10-16] MEDS ORDERED: NITRO-DUR0.4 MG/HR (10:43)
[2018-10-16] MEDS ORDERED: ASPIRIN 81 LOW81 MG PO (10:44)
[2018-10-16] MEDS ORDERED: COZAAR50 MG PO (10:45)
[2018-10-16] MEDS ORDERED: IPRATROPIU0.5 MG/3 M NEB (10:46)
[2018-10-16] MEDS ORDERED: NOVOLIN 70/30 SC (10:50)
--- NOTE | 2018-10-16 11:22 | NUR ---
REPORT CALLED TO CAITLIN JONES ON [facility]. WILL TRANSFER PATIENT TO FLOOR AFTER LUNCH
--- NOTE | 2018-10-16 11:33 | NUR ---
PT SET UP FOR NOON MEAL. SPOUSE PROVIDED A GUEST TRAY WELL.
--- NOTE | 2018-10-16 12:30 | NUR ---
PT TO ROOM 289 VIA WHEELCHAIR ACCOMPNAIED BY NURSE AND SPOUSE ALL BELONGINGS SENT WITH PATIENT.
--- NOTE | 2018-10-16 12:35 | NUR ---
PT RECEIVED FROM ICU VIA WHEELCHAIR. PT ASSISTED INTO BED. ALERT AND ORIENTED X4. RESP EVEN AND UNLABORED. O2 N/C ON AT 2L. LUNGS REVEAL DIMINISHED BREATH SOUNDS. ABD SOFT AND NONDISTENDED WITH BOWEL SOUNDS PRESENT. NO LOWER EXT EDEMA NOTED. PEDAL PULSES PALPATED BILAT. HEPLOCK PATENT IN RT A.C. PT DOES NOT HAVE TELE ORDERED. ORIENTED TO ROOM AND CALL TURNER. PT INSTRUCTED NOT TO GET OOB ON HER OWN AND TO RING FOR STAFF ASSIST. PT STATES SHE UNDERSTANDS. AT BEDSIDE. CALL TURNER WITHIN REACH.
--- NOTE | 2018-10-16 16:39 | NUR ---
PT RESTING IN BED. RESP EVEN AND UNLABORED. O2 N/C ON AT 2L. HEPLOCK PATENT. ASSESSMENT UNCHANGED. FREQUENT ROUNDS MADE. CALL TURNER WITHIN REACH.
--- NOTE | 2018-10-16 17:45 | NUR ---
DR OLIVEIRA IN TO SPEAK WITH PT. INFORMED ACCUCHECK READING 421. NEW ORDER RECEIVED FOR NOVOLOG 12 UNITS S.Q NOW X1 DOSE. PT SITTING OOB IN CHAIR. OFFERS NO COMPLAINTS. CALL TURNER WITHIN REACH.
--- NOTE | 2018-10-16 20:54 | NUR ---
PT. RESTING IN BED WATCHING TV. NO DISTRESS NOTED; ASSESSMENT COMPLETED. O2 INFUSING PER NC @2.5LITERS/MIN PT. USES AT HOME. UPDATED ON POC AND VERBALIZES UNDERSTANDING. SCHED MEDS GIVEN. ENCOURAGED TO CALL FOR ANY NEEDS. TEDS PLACED TO BLE. CALL LIGHT IS IN REACH. WILL CONTINUE TO MONITOR.
--- NOTE | 2018-10-16 22:30 | NUR ---
IV SITE LEAKING, REMOVED AND CATHETER TIP INTACT. NEW IV STARTED #22 GAUGE TO RFA X1 ATTEMPT; PT. TOLERATED WELL. ANTIBIOTIC RE-CONNECTED. PT. ASSISTED TO THE BATHROOM AND BACK INTO BED. VOIDED 300MLS OF CLEAR YELLOW URINE.
--- NOTE | 2018-10-17 00:14 | NUR ---
RESTING IN BED WITH EYES CLOSED; RESP. EVEN AND UNLABORED. NO DISTRESS NOTED. CALL LIGHT IS IN REACH. WILL CONTINUE TO MONITOR.
--- NOTE | 2018-10-17 03:20 | NUR ---
RESTING IN BED WITH EYES CLOSED. RESP. EVEN AND UNLABORED; NO DISTRESS NOTED; WILL CONTINUE TO MONITOR.
[2018-10-17 04:50] VITALS: BP 163/57
--- NOTE | 2018-10-17 04:52 | NUR ---
PT. DOWN TO XRAY VIA W/C ACCOMPANIED BY BRAKE LINER.
--- NOTE | 2018-10-17 04:58 | NUR ---
PT. RETIRNED FROM XRAY VIA W/C.
--- NOTE | 2018-10-17 05:10 | NUR ---
DR. OLIVEIRA NOTIFIED OF HTN THROUGHOUT THIS ADMISSION WELL SBP BEING IN THE 160'S THIS SHIFT AND RESTARTED HOME COZAAR AND LABETOLOL; WILL CARRY OUT THESE ORDERS.
[2018-10-17 05:43] LABS: HEMATOCRIT 39.9 % (37.0-47.0); HEMOGLOBIN 11.7 g/dl (12.0-16.0); MEAN CELL VOLUME 95.9 fL CALC (80.0-100.0); MEAN CORPUSCULAR HGB 28.1 pG CALC (26.0-32.0); MEAN CORPUSCULAR HGB CONC 29.3 g/L CALC (32.0-36.0); NEUT# 3.25 thou/uL (2.00-7.15); RED BLOOD COUNT 4.16 mill/uL (4.20-5.60); RED CELL DISTRI WIDTH 14.7 % (11.5-15.5)
[2018-10-17 06:17] LABS: CREATININE 1.2 mg/dL (0.5-1.0)
--- NOTE | 2018-10-17 08:00 | NUR ---
PT AWAKE RESTING IN RECLINER. ALERT AND ORIENTED X4. O2 N/C AT 2L. LUNGS REVEAL DIMINISHED BREATH SOUNDS. ABD SOFT AND NONDISTENDED WITH BOWEL SOUNDS PRESENT. NO LOWER EXT EDEMA NOTED. PEDAL PULSES PALPATED BILAT. HEPLOCK PATENT IN RT FOREARM NO REDNESS OR TENDERNESS AT SITE. PT DENIES ANY DISCOMFORT. AT BEDSIDE. CALL TURNER WITHIN REACH.
[2018-10-17 08:23] VITALS: BP 173/74
--- NOTE | 2018-10-17 08:30 | NUR ---
DR OLIVEIRA IN TO SPEAK WITH PT AND HER . AWARE B/P IS ELEVATED AT 173/74. PLAN IS FOR POSSIBLE D/C LATER TODAY. NO NEW ORDERS RECEIVED AT THIS TIME.
[2018-10-17 11:30] VITALS: BP 182/66
--- NOTE | 2018-10-17 11:50 | NUR ---
DR OLIVEIRA CALLED AND INFORMED PTS B/P 182/66, HR 75. NEW ORDER RECEIVED FOR HYDRALAZINE 25MG P.O FOR ELEVATED B/P. ORDER RECEIVED WITH VERBAL READ BACK CONFIRMATION AND CHARTED.
--- NOTE | 2018-10-17 12:40 | NUR ---
PT RESTING IN BED. RESP EVEN AND UNLABORED. O2 N/C ON AT 2L. HEPLOCK PATENT. CALL TURNER WITHIN REACH.
[2018-10-17 13:10] VITALS: BP 151/75
--- NOTE | 2018-10-17 13:10 | NUR ---
PT SITTING AT EDGE OF THE BED. B/P 151/75, HR 89. RESP EVEN AND UNLABORED. OFFERS NO COMPLAINTS. AT BEDSIDE. CALL TURNER WITHIN REACH.
--- NOTE | 2018-10-17 16:30 | NUR ---
RESTING IN BED. ASSESSMENT UNCHANGED. HEPLOCK PATENT. O2 N/C ON AT 2L. AT BEDSIDE. OFFERS NO COMPLAINTS. CALL TURNER WITHIN REACH.
[2018-10-17 19:18] VITALS: BP 140/56
--- NOTE | 2018-10-17 20:19 | NUR ---
ASSESSMENT COMPLETED; NO DISTRESS NOTED;DENIES NEEDS/PAIN. IV SITE PATENT AND FLUSHED AND ORDERED IVF HUNG. SCHED MEDS GIVEN. EDUCATED ON NEW MEDICATION (APRESOLINE) FOR LATER TONIGHT AND VERBALIZES UNDERSTANDING. UPDATED ON POC. ENCOURAGED TO CALL FOR ANY NEEDS. INSTRUCTED PT. TO CALL FOR ALL OOB NEEDS AND NOT TO GET OOB ALONE AND VERBALIZES UNDERSTANDING. PT. REPORTS SMALL BM TODAY. CALL LIGHT IS IN REACH. WILL CONTINUE TO MONITOR.
[2018-10-17 21:54] VITALS: BP 141/56
--- NOTE | 2018-10-17 21:54 | NUR ---
B/P 141/56, SCHEDULED APRESOLINE GIVEN ALONG WITH OTHER SCHED MEDS. IV SITE PATENT AND SL, FLUSHED.DENIES NEEDS/PAIN. SNACK PROVIDED. CALL LIGHT IS IN REACH.
--- NOTE | 2018-10-18 | NUR ---
RESTING IN BED WITH EYES CLOSED; NO DISTRESS NOTED; RESP. EVEN AND UNLABORED. CALL LIGHT IS IN REACH.
[2018-10-18 03:30] VITALS: BP 138/51
--- NOTE | 2018-10-18 03:30 | NUR ---
PT. RESTING IN BED WITH NO DISTRESS NOTED; DENIES NEEDS/PAIN. VSS. ENCOURAGED TO CALL FOR ANY NEEDS. CALL LIGHT IS IN REACH.
--- NOTE | 2018-10-18 05:15 | NUR ---
PT. DOWN TO XRAY VIA W/C ACCOMPANIED BY TWISTER IN.
[2018-10-18 06:14] LABS: HEMATOCRIT 39.2 % (37.0-47.0); HEMOGLOBIN 11.7 g/dl (12.0-16.0); MEAN CELL VOLUME 95.6 fL CALC (80.0-100.0); MEAN CORPUSCULAR HGB 28.5 pG CALC (26.0-32.0); MEAN CORPUSCULAR HGB CONC 29.8 g/L CALC (32.0-36.0); NEUT# 2.84 thou/uL (2.00-7.15); RED BLOOD COUNT 4.1 mill/uL (4.20-5.60); RED CELL DISTRI WIDTH 14.6 % (11.5-15.5)
[2018-10-18 06:24] LABS: ALBUMIN 3.5 g/dL (3.2-5.0); BILIRUBIN, TOTAL 0.5 mg/dL (0.0-1.4); CREATININE 1.1 mg/dL (0.5-1.0); POTASSIUM 4.9 mmol/l (3.5-5.1)
[2018-10-18 06:31] LABS: IMMATURE GRANULOCYTES 8.6 % (0.0-5.0)
--- NOTE | 2018-10-18 06:37 | NUR ---
CO2 THIS AM 41, MD ALREADY AWARE OF TREND. TRENDING DOWN.
--- NOTE | 2018-10-18 07:10 | NUR ---
REPORT RECEIVED FROM XINRN;PT RESTING AT BEDSIDE WITH SPOUSE;INTRODUCED SELF TO PT AND POC DISCUSSED;RESPIRATIONS EVEN AND UNLABORED,SHALLOW ON O2 @ 2.5L VIA NC;PT DENIES ANY CURRENT PAIN OR DISCOMFORTS,PAIN SCALE AND REPORTING EDUCATED;ACCUCHECK 420, TO BE NOTIFIED;PT ENCOURAGED TO CALL FOR ASSISTANCE IF NEEDED;FALL PRECAUTIONS NOTED WITH BED IN THE LOWEST POSITION AND CALL LIGHT IN REACH;WILL CONTINUE TO MONITOR
--- NOTE | 2018-10-18 07:42 | NUR ---
CALL MADE TO REGARDING PT ELEVATED BLOOD SUGAR, NEW ORDERS RECEIVED.
--- NOTE | 2018-10-18 08:15 | NUR ---
AT BEDSIDE DISCUSSING POC.
[2018-10-18 08:18] VITALS: BP 154/54
--- NOTE | 2018-10-18 08:20 | NUR ---
PT RESTING AT BEDSIDE WITH SPOUSE, A&O X3;VS OBTAINED AND ASSESSMENT COMPLETED;PT DENIES ANY CURRENT PAIN OR DISCOMFORTS, PAIN SCALE AND REPORTING EDUCATED;RESPIRATIONS EVEN AND UNLABORED,SHALLOW ON O2 @ 2.5L;ABDOMEN DISTENDED/SOFT ON PALPATION AND ACTIVE IN ALL 4 QUADRANTS;STRONG PEDAL PULSES;SKIN INTACT WITH GENERALIZED BRUISING NOTED;#22G TO RIGHT FOREARM FLUSHED AND PATENT,SITE APPEARS HEALTHY;ACCUCHECK 420, PT COVERED WITH SLIDING SCALE NOVOLOG WITH AN ADDITIONAL 10 UNITS OF NOVOLIN R PER ORDER;PT DENIES ANY ADDITIONAL NEEDS AT THIS TIME AND IS ENCOURAGED TO CALL FOR ASSISTANCE IF NEEDED;FALL PRECAUTIONS IN PLACE WITH BED IN THE LOWEST POSITION AND CALL LIGHT IN REACH;WILL CONTINUE TO MONITOR
[2018-10-18 09:07] VITALS: BP 169/48
[2018-10-18 09:09] VITALS: BP 169/48
--- NOTE | 2018-10-18 11:30 | NUR ---
PT RESTING IN SEMI FOWLERS POSITION WITH SPOUSE AT BEDSIDE;RESPIRATIONS REMAIN EVEN AND UNLABORED ON O2 @ 2.5L VIA NC;PT DENIES ANY CURRENT PAIN OR DISCOMFORTS;IV SITE TO RFA PATENT;ACCUCHECK 394, PT COVERED WITH SLIDING SCALE NOVOLOG PER ORDER;ADVANCED DIRECTIVES PACKET PROVIDED FOR REVIEW PER AND ALL QUESTIONS ANSWERED AT THIS TIME;PT DENIES ANY ADDITIONAL NEEDS AND IS ENCOURAGED TO CALL FOR ASSISTANCE IF NEEDED;CALL LIGHT IN REACH;WILL CONTINUE TO MONITOR
--- NOTE | 2018-10-18 11:45 | NUR ---
SPOKE WITH REGARDING PT ELEVATED BLOOD SUGAR; REPORTS THAT HE WILL BE PUTTING IN D/C ORDERS SHORTLY;PT WAS COVERED WITH SLIDING SCALE NOVOLOG PER ORDER;WILL CONTINUE TO MONITOR
[2018-10-18] MEDS ORDERED: LEVAQUIN750 MG PO (11:51)
--- NOTE | 2018-10-18 13:05 | NUR ---
ALL DISCHARGE INSTRUCTIONS PROVIDED AT THIS TIME, PT ENCOURAGED TO CORPORATE WELLNESS COORDINATOR HER RX FROM [facility] FOR LEVOQUIN;PT VERBALIZES UNDERSTANDING AND ALL QUESTIONS ANSWERED;IV SITE REMOVED WITH CATHETER INTACT;PT DENIES ANY ADDITIONAL NEEDS;WHEELCHAIR TO BE PROVIDED FOR DISCHARGE HOME;SPOUSE TO PROVIDED TRANSPORTATION.
--- NOTE | 2018-10-18 13:16 | NUR ---
Discharge instructions given. Patient verbalizes understanding of same. Discharged in stable condition via Wheelchair to Home with spouse. All belongings sent with pt. Pt discharged via wheelchair in stable condition via wheelchair accompanied by volunteer and spouse.
== END 2018-10-18 13:16 | disposition home health service (06) | DRG 190 ==
LOC: ED 16:42 → ED-I 18:14 → ED 18:29 → MS2 18:30 → ICU 18:30 → ED-I 18:30 → ICU 19:10 → MS2 10-16 12:33
PROVIDERS: Emergency Medicine; ADMIT Internal Medicine Geriatric Medicine; ATTEND Internal Medicine Geriatric Medicine
PROC: 5A09357 Assistance with Respiratory Ventilation, Less than 24 Consecutive Hours, Continuous Positive Airway Pressure (ICD-10-PCS; principal; 2018-10-13)
DX: J44.1 Chronic obstructive pulmonary disease with (acute) exacerbation (principal); J18.9 Pneumonia, unspecified organism; N39.0 Urinary tract infection, site not specified; J91.8 Pleural effusion in other conditions classified elsewhere; J44.0 Chronic obstructive pulmonary disease with (acute) lower respiratory infection; I25.10 Atherosclerotic heart disease of native coronary artery without angina pectoris; I11.0 Hypertensive heart disease with heart failure; I50.9 Heart failure, unspecified; K21.9 Gastro-esophageal reflux disease without esophagitis; K27.9 Peptic ulcer, site unspecified, unspecified as acute or chronic, without hemorrhage or perforation; M79.7 Fibromyalgia; E11.51 Type 2 diabetes mellitus with diabetic peripheral angiopathy without gangrene; E03.9 Hypothyroidism, unspecified; R09.02 Hypoxemia; D64.9 Anemia, unspecified; E11.649 Type 2 diabetes mellitus with hypoglycemia without coma; B96.1 Klebsiella pneumoniae [K. pneumoniae] as the cause of diseases classified elsewhere; Z79.4 Long term (current) use of insulin; Z86.73 Personal history of transient ischemic attack (TIA), and cerebral infarction without residual deficits; Z99.81 Dependence on supplemental oxygen; Z95.0 Presence of cardiac pacemaker

== ENCOUNTER 2019-04-23 14:48 | Inpatient (IN) | payer MEDICARE ==
[~2019-04-23] VITALS: Ht 157.5 cm; Wt 84.9 kg
[~2019-04-23 14:48] MED LIST changes: +ASPIRIN 81 LOW81 MG PO; +COZAAR50 MG PO; +GLUCOTROL5 MG PO; +IPRATROPIU0.5 MG/3 M NEB; +LEVAQUIN750 MG PO; +NITRO-DUR0.4 MG/HR; +NORMODYNE/100 MG/TA1 PO; +SYNTHROID175 MCG PO
--- NOTE | 2019-04-23 15:11 | NUR ---
PT TAKEN TO ER9 BY WC WITH ON PERSONAL O2. CHANGED INTO GOWN.
[2019-04-23] MEDS ORDERED: ISOSORB MONO30 MG PO (15:33)
[2019-04-23] MEDS ORDERED: METOPROL TAR25 MG PO (15:34)
[2019-04-23 15:51] LABS: HEMATOCRIT 35.5 % (37.0-47.0); HEMOGLOBIN 10.9 g/dl (12.0-16.0); IMMATURE GRANULOCYTES 5.3 % (0.0-5.0); MEAN CELL VOLUME 95.7 fL CALC (80.0-100.0); MEAN CORPUSCULAR HGB 29.4 pG CALC (26.0-32.0); MEAN CORPUSCULAR HGB CONC 30.7 g/L CALC (32.0-36.0); NEUT# 3.31 thou/uL (2.00-7.15); RED BLOOD COUNT 3.71 mill/uL (4.20-5.60); RED CELL DISTRI WIDTH 13.9 % (11.5-15.5)
[2019-04-23 16:07] LABS: ALBUMIN 3.8 g/dL (3.2-5.0); ALKALINE PHOSPHATASE 57 u/l (38-126); ANION GAP 12 (6-22 (CALC)); BILIRUBIN, TOTAL 0.4 mg/dL (0.0-1.4); BUN 38 mg/dL (8-23); BUN/CREATININE RATIO 36 (12-20 (CALC)); CARBON DIOXIDE 34 mmol/l (22-30); CHLORIDE 100 mmol/l (95-108); GFR 52 ML/MIN (>=60 (CALC)); GFR FOR AFR.AMER. > 60 ML/MIN (>=60 (CALC)); POTASSIUM 4.5 mmol/l (3.5-5.1); SGOT/AST 19 u/l (9-36); SODIUM 141 mmol/l (137-146); TOTAL PROTEIN 7.1 g/dL (6.3-8.2)
--- NOTE | 2019-04-23 16:18 | NUR ---
PT RESTING QUIETLY ON STRETECHER, NO DISTRESS NOTED.
[2019-04-23 16:19] LABS: MYOGLOBIN 98 ng/mL (0 - 62)
--- NOTE | 2019-04-23 17:20 | NUR ---
ANTIBIOTICS HANGING, PT RESTING QUIETLY ON STRETCHER, STATES FEELS A LITTLE BETTER.
--- NOTE | 2019-04-23 17:25 | NUR ---
UNABLE TO GIVE REPORT TO MED SURG. ROOM IS NOT CLEAN WILL CALL BACK WHEN AVAILABLE PT RESTING QUIETLY
--- NOTE | 2019-04-23 18:20 | NUR ---
TRIED CALLING REPORT, NURSE UNAVAILABLE
--- NOTE | 2019-04-23 18:45 | NUR ---
PT IS NOT SOB AT THIS TIME, STATES FEELS MUCH BETTER.
--- NOTE | 2019-04-23 18:50 | NUR ---
DR. SALMON SPEAKING TO DR. BURR ABOUT HER CRITICAL CO2 VALUE PT IS SITTING UP ON SIDE OF BED , SPEAKING ALERTLY, NO DISTRESS NOTED. SATS 99%, DENIES ANY SOB AT THIS TIME. NO NEW ORDERS FOR PT.
--- NOTE | 2019-04-23 19:30 | NUR ---
PT TAKEN TO FLOOR PER W/C ACCOMPANIED BY . ALERT/ORIENTED X3, NO DISTRESS, TALKING AND LAUGHING TO STAFF.
[2019-04-23 19:41] VITALS: BP 164/61
--- NOTE | 2019-04-23 19:45 | NUR ---
PATIENT ADMITTED FROM ER TO ROOM 279. SPOUSE IN ATTENDANT. PT IS ALERT AND ORIENTED X 4. PT IS ABLE TO MAKE NEEDS KNOWN. 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 PT STATES SHE CANNOT SEE VERY WELL, PT HAS GLASSES ON. PT IS STAND BY ASSIST DUE TO EYESIGHT PROBLEM.PATIENT REFUSED NIGHT TIME LASIX DUE TO LATENESS OF HOUR. PT STATES THAT SHE DOES NOT WANT TO BE UP ALL NIGHT URINATING. SAUSAGE INSPECTOR WILL NOTIFY DOCTOR
[2019-04-23 23:43] VITALS: BP 169/79
--- NOTE | 2019-04-24 00:45 | NUR ---
PATIENT COMPLAIN OF FEELING SHAKY. BLOOD GLUCOSE WITH SUGAR AT 55. 4 OUNZE OF ORANGE JUICE GIVEN TO RAISE SUGAR. 8 OUNCE OF MILK GIVEN TO STABILIZE SUGAR. STAFFING OPERATIONS MANAGER WILL RECHECK BG AT 0100.
--- NOTE | 2019-04-24 01:00 | NUR ---
BLOOD SUGAR AT 83. PATIENT STATES THAT SHE DOES NOT FEEL SHAKY ANY MORE. REELING OPERATOR WILL CONTINUE TO MONITOR PATIENT. PATIENT AGREES TO NOTIFY REELING OPERATOR IF SYMPTOMS RETURN.
[2019-04-24 03:38] VITALS: BP 164/60
--- NOTE | 2019-04-24 05:18 | NUR ---
PATIENT RESTING COMFORTABLY. NO S/S OF DISTRESS. ELECTRONICS PARTS SALES REPRESENTATIVE WILL CONTINUE TO MONITOR
--- NOTE | 2019-04-24 08:00 | NUR ---
PATIENT A/OX4, NO C/O PAIN, NO S/S RESP DISTRESS, O2 VIA NC NEB TX AND STEROIDS, PATIENT BLOOD GLUCOSE 134, PATIENT STAND BY ASSIST PATIENT VOIDED, WILL CONTINUE TO MONITOR PATIENT CALL LIGHT WITHTN REACH
[2019-04-24 08:16] VITALS: BP 167/67
[2019-04-24 10:59] VITALS: BP 185/61
--- NOTE | 2019-04-24 11:18 | NUR ---
PATIENT A/OX4, NO C/O PAIN, PATIENT NO S/S RESP DISTRESS, PATIENT BLOOD GLUCOSE 222, TREATED PATIENT GLUCOSE LEVEL PER MD ORDERS, WILL CONTINUE TO MONITOR PATIENT, CALL LIGHT WITHIN REACH
[2019-04-24 14:47] VITALS: BP 154/54
--- NOTE | 2019-04-24 16:39 | NUR ---
PATIENT A/OX4, NO C/O PAIN, NO S/S RESP DISTRESS, PATIENT ON O2 VIA NC, PATIENT ON ANTIBOTICS FOR PNEUMONIA, PATIENT TOLERATING ANTIBOTICS, PATIENT HAS PACEMAKER, PATIENT HEART RHYTHM IS PACED, WILL CONTINUE TO MONITOR PATIENT, CALL LIGHT WITHIN REACH
[2019-04-24 19:22] VITALS: BP 132/57
--- NOTE | 2019-04-24 19:30 | NUR ---
PHYSICAL ASSESMENT COMPLETE. PLAN OF CARE REVIEWED. PT VERBALIZES UNDERSTANDING AND DENIES QUESTIONS. DENIES NEEDS AT THIS TIME. CALL YUE DAMON, AGREES TO CALL PRN.
[2019-04-24 23:55] VITALS: BP 141/64
--- NOTE | 2019-04-25 00:04 | NUR ---
PT APPEARS TO BE SLEEPING COMFORTABLY, SUPINE, RESP REG AND UNLABORED, NO APPARENT DISTRESS, CALL TURNER REMAINS WITHIN REACH.
[2019-04-25 04:06] VITALS: BP 152/65
--- NOTE | 2019-04-25 04:06 | NUR ---
PT AWAKE, LAYING IN BED, REPOSITIONED FOR COMFORT. DENIES NEEDS AT THIS TIME. CALL TURNER IN REACH, AGREES TO CALL PRN.
--- NOTE | 2019-04-25 07:00 | NUR ---
SHIFT CHANGE REPORT, PT AWAKE ALERT AND ORIENTED SITTING UP IN RECLINER, NO C/O DISCOMFORT AND STATES SHE FEELS MUCH BETTER TODAY, TELE MONITOR IN PLACE, O2 @ 3L VIA NC IN PLACE, CALL TURNER IN REACH.
[2019-04-25 07:05] LABS: CREATININE 1.1 mg/dL (0.5-1.0); MAGNESIUM 2.2 mg/dL (1.6-2.3); POTASSIUM 4.7 mmol/l (3.5-5.1)
[2019-04-25 07:13] LABS: HEMATOCRIT 33.8 % (37.0-47.0); HEMOGLOBIN 10.2 g/dl (12.0-16.0); MEAN CELL VOLUME 96.8 fL CALC (80.0-100.0); MEAN CORPUSCULAR HGB 29.2 pG CALC (26.0-32.0); MEAN CORPUSCULAR HGB CONC 30.2 g/L CALC (32.0-36.0); NEUT# 4.67 thou/uL (2.00-7.15); RED BLOOD COUNT 3.49 mill/uL (4.20-5.60); RED CELL DISTRI WIDTH 14.2 % (11.5-15.5)
[2019-04-25 07:30] LABS: IMMATURE GRANULOCYTES 6.7 % (0.0-5.0)
[2019-04-25 08:02] VITALS: BP 155/72
[2019-04-25 11:33] VITALS: BP 150/68
--- NOTE | 2019-04-25 12:18 | NUR ---
SITTING UP IN CHAIR HAVING MEAL AT THIS TIME, ALL NEEDS ADDRESSED, SPOUSE AT BEDSIDE.
[2019-04-25 14:01] LABS: URINE BILIRUBIN - DIPSTICK NEGATIVE (NEGATIVE); URINE BLOOD DIPSTICK NEGATIVE (NEGATIVE); URINE COLOR YELLOW; URINE GLUCOSE - DIPSTICK NEGATIVE (NEGATIVE); URINE KETONE NEGATIVE (NEGATIVE); URINE LEUK ESTERASE NEGATIVE (NEGATIVE); URINE NITRITE - DIPSTICK NEGATIVE (Negative); URINE PROTEIN - DIPSTICK NEGATIVE (NEG-TRACE); URINE SPECIFIC GRAVITY 1.015; URINE UROBILINOGEN - DIPSTICK 0.2 E.U./dL (0.2)
[2019-04-25 16:00] VITALS: BP 161/66
--- NOTE | 2019-04-25 16:00 | NUR ---
RELAXING IN CHAIR WITH SPOUSE OF 54 YRS BY SIDE, ALL NEEDS MET/ADDRESSED.
[2019-04-25 19:08] VITALS: BP 158/68
--- NOTE | 2019-04-25 19:47 | NUR ---
PATIENT SITTING UP IN CHAIR WITH AT HER SIDE AND O2 VIA NASAL CANNULA IN PLACE. PATIENT I ALERT AND ORIENTEDX3. NO COMPLAINT AT THIS TIME. TELE MONITOR IN PLACE. SALINE LOCK TO LAC INTACT AND APPEARS HEALTHY AT THIS TIME. LUNGS ARE CLEAR/DIMINISHED. ABD IS SOFT WITH BS+. NO PERIPHERAL EDEMA NOTED. VOIDING QS YELLOW URINE IN BR. PATIENT REFUSED LASIX 40 MG TONIGHT-STATES THAT SHE ONLY IS TAKING IT DAIY INSTEAD OF BID. JEANNETTE GRAY MADE AWARE. SAFETY PRECAUTIONS REINFORCED. CALL LIGHT IN REACH. HALI CONT TO MONITOR.
--- NOTE | 2019-04-25 21:30 | NUR ---
PATIENT REMAINS SITTING UP IN CHAIR WATCHING TV WITH O2 VIA NASAL CANNULA IN PLACE. [id number]-COVERED WITH NOVALOG 3UNITS SQ PER SS COVERAGE PROTOCOL. PROVIDED WITH HS SNACK. BALJEETITHGENI HUNG AND INFUSING VIA LAC IV SITE. CALL LIGHT IN REACH. WILL CONT TO MONITOR
[2019-04-26 00:11] VITALS: BP 148/71
--- NOTE | 2019-04-26 00:53 | NUR ---
PATIENT SITTING UP IN THE CHAIR-C/O RIGHT SIDED MIDBACK PAIN-MEDIATED WITH TYLENOL 650MG PO FOR PAIN-6/10 ON PAINS SCALE. O2 VIA NASAL CANNULA IN PLACE. TELE MONITOR IN PLACE. SAFETY PRECCAUTIONS REINFORCED. CALL LIGHT IN REACH. WILL CONT TO MONITOR.
[2019-04-26 04:39] VITALS: BP 160/58
--- NOTE | 2019-04-26 04:46 | NUR ---
PATIENT APPEAR SLEEPING AT THIS TIME WITH O2 VIA NASAL CANNULA INPLACE AND EYES CLOSED. TELE MONITOR IN PLACE. CALL LIGHT IN REACH. WILL CONT TO MONITOR.
--- NOTE | 2019-04-26 07:10 | NUR ---
REPORT RECEIVED FROM ROBERT ASHER;PT TAKING A SHOWER AT THIS TIME WITH SPOUSE AT BEDSIDE;INTRODUCED SELF TO PT AND POC DISCUSSED;RESPIRATIONS EVEN AND UNLABORED ON O2 @ 3L VIA NC;PT DENIES ANY CURRENT PAIN OR NEEDS;ENCOURAGED TO CALL FOR ASSISTANCE IF NEEDED;FALL PRECAUTIONS IN PLACE WITH CALL LIGHT IN REACH;WILL CONTINUE TO MONITOR
[2019-04-26 08:20] VITALS: BP 172/62
--- NOTE | 2019-04-26 08:20 | NUR ---
PT RESTING IN RECLINER WITH SPOUSE AT BEDSIDE,A&O X3;VS OBTAINED AND ASSESSMENT COMPLTED,CURRENT BP 172/62 HR 60 ALL MORNING MEDICATIONS TO BE ADMINISTERED;PT DENIES ANY CURRENT PAIN OR DISCOMFORTS,PAIN SCALE AND REPORTING EDUCATED;RESPIRATIONS EVEN AND UNLABORED ON O2 @ 3L VIA NC;ABDOMEN DISTENDED/SOFT ON PALPATION AND ACTIVE IN ALL 4 QUADRANTS;STRONG PEDAL PULSES;SKIN INTACT;TELE MONITORING IN PLACE;#20G TO LAC FLUSHED AND PATENT,SITE APPEARS HEALTHY;ACCUCHECK 133;PT DENIES ANY ADDITIONAL NEEDS AT THIS TIME AND IS ENCOURAGED TO CALL FOR ASSISTANCE IF NEEDED;CALLLIGHT IN REACH;WILL CONTINUE TO MONITOR
[2019-04-26 09:49] VITALS: BP 162/58
[2019-04-26 10:45] VITALS: BP 149/63
--- NOTE | 2019-04-26 11:20 | NUR ---
PT OOB RESTING IN RECLINER WITH SPOUSE AT BEDSIDE;RESPIRATIONS EVEN AND UNLABORED ON O2 @ 3L VIA NC;PT DENIES ANY CURRENT PAIN OR NEEDS;TELE MONITORING IN PLACE;ACCUCHECK 184, PT COVERED WITH SLIDING SCALE NOVOLOG PER ORDER;ASSESSMENT REMAINS UNCHANGED;ENCOURAGED TO CALL FOR ASSISTANCE IF NEEDED;CALL LIGHT IN REACH;WILL CONTINUE TO MONITOR
[2019-04-26] MEDS ORDERED: MEDDOSEPAK PO (12:21)
[2019-04-26] MEDS ORDERED: DOXYCYCL HYC100 MG PO (12:22)
--- NOTE | 2019-04-26 13:40 | NUR ---
ALL DISCHARGE INSTRUCTIONS PROVIDED AT THIS TIME;RX FOR MEDROL AND DOXY PROVIDED;PT INSTRUCTED TO TAKE MEDICATION DIRECTED,F/U WITH PCP REGARDING FLUID IN LUNG, AND TO CONTINUE LASIX;IV SITE REMOVED WITH CATHETER INTACT AND TELE MONITORING D/C;PT DENIES ANY ADDITIONAL NEEDS;WHEELCHAIR TO BE PROVIDED FOR D/C HOME;SPOUSE TO TRANSPORT PT HOME.
--- NOTE | 2019-04-26 13:57 | NUR ---
Discharge instructions given. Patient verbalizes understanding of same. Discharged in stable condition via Wheelchair to Home with spouse. All belongings sent with pt. PT TRANSPORTED TO [facility] IN STABLE CONDITION VIA WHEELCHAIR ACCOMPANIED BY VOLUNTEER AND SPOUSE FOR D/C HOME.SPOUSE TO TRANSPORT PT HOME.
== END 2019-04-26 13:57 | disposition home or self-care (01) | DRG 682 ==
LOC: ED 14:48 → ED-I 16:34 → ED 16:56 → MS2 16:57
PROVIDERS: Emergency Medicine; Nurse Practitioner Family; ADMIT Internal Medicine; ATTEND Internal Medicine
DX: I13.10 Hypertensive heart and chronic kidney disease without heart failure, with stage 1 through stage 4 chronic kidney disease, or unspecified chronic kidney disease (principal); J18.9 Pneumonia, unspecified organism; J96.11 Chronic respiratory failure with hypoxia; J43.9 Emphysema, unspecified; I50.9 Heart failure, unspecified; E11.22 Type 2 diabetes mellitus with diabetic chronic kidney disease; N18.3 Chronic kidney disease, stage 3 (moderate); I25.10 Atherosclerotic heart disease of native coronary artery without angina pectoris; I48.91 Unspecified atrial fibrillation; E78.5 Hyperlipidemia, unspecified; I87.2 Venous insufficiency (chronic) (peripheral); E03.9 Hypothyroidism, unspecified; Z95.0 Presence of cardiac pacemaker; Z79.4 Long term (current) use of insulin; Z99.81 Dependence on supplemental oxygen; Z79.02 Long term (current) use of antithrombotics/antiplatelets; Z86.73 Personal history of transient ischemic attack (TIA), and cerebral infarction without residual deficits
CPT/HCPCS: G0378